=== PATIENT | female | born 1960 | race Caucasian/White ===

== ENCOUNTER → 2016-06-09 | Day surgery (SDC) | payer OTHER ==
[~2016-06-09] VITALS: Ht 160 cm; Wt 68.0 kg
[~2016-06-09] MED LIST: ACETAMI PO; BACTRIM DS 8001 TAB PO; BACTRIM DS TAB1 EACH PO; BENTYL 10 MG CA10 MG PO; BENZONATATE200 MG PO; CARAFATE 1GM1000 MG PO; CENTRUM SILVER1 TA1 PO; DILAUDID2 MG PO; GABAPENTIN300 MG PO; GABAPENTIN400 MG PO; HYDROCODONE PO; KEFLEX500 M1 PO; KLONOPIN 1MG TAB1 MG PO; LYRICA25 M1 AD; MEDROL DOSEPAK1 PAC PO; MEDROL4 M2 PO; METFORMIN HCL500 M3; METHOCARBAMOL750 MG PO; METHYLPREDNISONE4 MG PO; NEURONTIN300 MG PO; NOVAPLUS V0.09 MG/Ac INH; ONDANSETRON8 M1 PO; OXYCODONE HYDRO15 MG PO; PANTOPRAZOLE SO40 MG PO; PEPCID40 MG PO; PERCOCET 325 MG1 TA1 PO; PERCOCET 325 MG1 TA2 PO; PERCOCET 5-3251 EACH PO; PHENADOZ25 MG PR; PHENERGAN12.5 M1 PO; PHENERGAN25 M1 PO; PHENERGAN25 MG PR; PHENERGAN25 MG RC; PHENERGAN25 MG/ML PO; PROMETHAZINE25 M1 PO; PROMETHAZINE25 MG PR; ROBAXIN 500MG500 MG PO; ROBAXIN500 M1 PO; ROXICODONE5 MG PO; SEPTS PO; SKELAXIN800 M1 PO; SUPREP BOWEL P177 ML PO; TRAMADOL HCL50 M1 PO; TRAMADOL HYDROC50 MG PO; TRAMADOL50 MG PO; TYLENOL PM 5001 CAP PO; TYLENOL WITH C1 EACH PO; ULTRAM(MONOGRAP50 MG PO; VITAMIN B121000 MC2 PO; ZITHROMAX Z-PA250 M1 PO; ZOFRAN 4 MG TABL4 MG PO; ZOFRAN ODT4 MG PO; ZOFRAN ODT4 MG SL; ZOFRAN4 M1 PO; ZOFRAN4 M1 SL
--- NOTE | 2016-06-09 13:43 | Operative Report ---
Operative/Inv Procedure Report Surgery Date: 06/09/16 Name of Procedure: Excision abdominal wall wound skin and subcutaneous tissues tissues and fascia. Removal of prosthetic material foreign body Pre-Operative Diagnosis: Chronic abdominal wound with foreign body Post-Operative Diagnosis: Same Estimated Blood Loss: scant Surgeon/Drying Can Worker: KEARA JHA MD Anesthesia: laryngeal mask airway Operative Indication: 55-year-old woman with chronic purulent drainage from his jejunostomy site. CT scan does not show evidence of a fistula. There is concern about retained prosthetic foreign material related to the feeding tube. She presents for resection Operative/Procedure Note Note: After consent she is brought to the operating room laid supine. Gen. anesthesia was obtained and her abdomen was prepped and draped. The wound was in the left lower quadrant an ellipse of skin was taken around the opening to encompass all of the inflamed skin and subcutaneous tissue. A core of tissue was then taken down to the fascia along the tract of the previously placed feeding tube. There was a fixed, firm band of tissue extending down to the fascia and it was excised completely with cautery to incorporate a small amount of fascia to which it was adhered. The specimen was then passed off the field. The fascial defect was only through the external oblique aponeurosis. Therefore it was not repaired. I elected not to perform closure of the deep tissues due to the contaminated nature of the case and concern about Vicryl foreign body reaction with infection. Wound was then irrigated with saline. The incision was then closed with interrupted 3-0 nylon in a vertical mattress fashion. Bacitracin was applied. Sterile dressing was applied. Sponge and needle counts are correct CC: GISELL RESENDIZ APRN
== END ==
LOC: STS 04:20
DX: M79.5 Residual foreign body in soft tissue (principal); Z18.9 Retained foreign body fragments, unspecified material; L08.9 Local infection of the skin and subcutaneous tissue, unspecified; Z93.4 Other artificial openings of gastrointestinal tract status; K57.92 Diverticulitis of intestine, part unspecified, without perforation or abscess without bleeding; E11.9 Type 2 diabetes mellitus without complications; Z79.84 Long term (current) use of oral hypoglycemic drugs; G89.29 Other chronic pain; Z98.84 Bariatric surgery status
CPT/HCPCS: 88305; J0131; J0690; J2250

== ENCOUNTER 2016-08-25 18:10 | Emergency (ER) | payer OTHER ==
[~2016-08-25] VITALS: Ht 160 cm; Wt 63.5 kg
[~2016-08-25 18:10] MED LIST changes: -TYLENOL WITH C1 EACH PO
[2016-08-25 18:18] VITALS: BP 120/80
--- NOTE | 2016-08-25 19:36 | ED MVC/FALL/TRAUMA COMPLAINT ---
History of Present Illness General Chief Complaint: Low Back Pain/Injury Stated Complaint: LOW BACK INJ, Source: patient, old records Exam Limitations: no limitations Vital Signs & Intake/Output Vital Signs & Intake/Output Vital Signs Date Time Temp Pulse Resp B/P B/P Pulse O2 O2 Flow FiO2 Mean Ox Delivery Rate 08/25 1818 97.6 91 16 120/80 98 Room Air ED Intake and Output 08/26 0000 08/25 1200 Intake Total Output Total Balance Patient 140 lb Weight Weight Reported by Patient Measurement Method Allergies Coded Allergies: NSAIDS (Non-Steroidal Anti-Inflamma (Mild, HIVES 05/28/15) aspirin (Mild, HIVES 05/28/15) carisoprodol (Mild, muscles like jelly 09/23/15) ciprofloxacin (Mild, HIVES 05/28/15) ibuprofen (Mild, HIVES 05/28/15) iron (Mild, NAUSEA/VOMITING 05/28/15) Uncoded Allergies: MUSCLE RELAXANT (Intermediate, muscles like jelly 09/23/15) Reconcile Medications Cyanocobalamin (Vitamin B12) 1,000 MCG TAB 1 TAB PO DAILY SUPPLEMENT ( Reported) Metformin HCl 500 MG TABLET dm ii (Reported) Methocarbamol 750 MG TABLET 1 TAB PO TID MUSCLE RELAXER (Reported) Multivitamin, Minerals, and (Centrum Silver) 1 TAB TAB 1 TAB PO DAILY SUPPLEMENT (Reported) Pregabalin (Lyrica) 25 MG CAPSULE pain (Reported) Tramadol HCl 50 MG TABLET 1 TAB PO BIDP PRN pain Tylenol With Codeine (Tylenol With Codeine #3 Tablet) 300 MG-30 MG TABLET 1 TAB PO BIDP PRN pain Triage Note: PT STATES SHE FELL DOWN 6 STAIRS DOWN ON HER TAILBONE ABOUT 11AM. PT STATES SHE HAS BEEN TRYING TO HOLD OFF COMING. PT HAS TAKEN TYLENOL PM FOR THE PAIN WITH NO RELIEF. Triage Nurses Notes Reviewed? yes Onset: Abrupt Duration: hour(s): (3), constant Timing: recent history Severity: mild, moderate Severity Numbers: 5 Injuries/Fall Location: back Method of Injury: fall Loss of Consciousness: no loss of consciousness No Modifying Factors: none Associated Symptoms: denies HPI: 56-year-old male presents complaining of left sided lower back pain after she had a mechanical trip and fall and fell down 6 stairs hitting her back on a step. She nodded her head there is no loss of consciousness. Patient has been ambulatory since the fall or reports pain with change in position better at rest she took Aleve without improvement. No abdominal pain leg arm neck or head pain. No nausea vomiting. No prodromal dizziness or lightheadedness prior to the fall or chest pain no nausea or vomiting (YANIV ONEAL) Past History Travel History Traveled to [place] past 21 day No Medical History Any Pertinent Medical History? 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 No (YANIV ONEAL) Review of Systems Review of Systems Constitutional: Reports: see HPI. All Other Systems: Reviewed and Negative Comments Review of systems: See HPI, All other systems negative. Constitutional, no chills no fever, HEENT: No visual changes no sore throat no congestion, Cardiovascular: No chest pain , no palpitation Skin: no rashes, no change in skin Respiratory: No dyspnea no cough no sputum GI: No nausea no vomiting, no diarrhea, : No dysuria Muscle skeletal: No joint pain, no joint swelling, back pain, no neck pain, Neurologic: no headache Psych: No stress Heme/endocrine: No bruising no bleeding Immunology: No lymphadenopathy (YANIV ONEAL) Physical Exam Physical Exam General Appearance: well developed/nourished, alert, awake Comments: Well-developed well-nourished person in no acute distress HEENT: Normal EENT exam; PERRL, EOMI, no nystagmus. HEAD is atraumatic. moist mucous membranes. Neck: Supple, normal range of motion without pain or tenderness Back: Nontender, no ecchymosis or signs of trauma no CVA tenderness. Full range of motion Cardiovascular: Regular rate and rhythms no murmurs rubs Respiratory: Chest nontender.There were no bony deformities, no asymmetry. No respiratory distress. Patient speaking in full complete sentences. Breath sounds clear to auscultation bilaterally: NO W/R/R Abdomen: Soft, nontender nondistended, no appreciable organomegaly. Normal bowel sounds. No rebound/guarding, Extremity: No edema, full range of motion of extremities, normal and equal pulses bilaterally, 5 out of 5 strength noted to bilateral upper and lower extremities Neuro: Alert oriented x3, motor sensory normal. There were no obvious focal neurologic abnormalities. Skin: No appreciable rash on exposed skin, skin is warm and dry. Psych: Mood and affect is normal, memory and judgment is normal. Core Measures ACS in differential dx? No Severe Sepsis Present: No Septic Shock Present: No (YANIV ONEAL) Progress Differential Diagnosis: abd injury, C/T/L spine injury, ext injury, pelvis injury, spinal cord injury Plan of Care: Orders Procedure Date/time Status XRY-LUMBOSACRAL SPINE 4 VIEWS 08/25 1928 Active X-rays ordered from triage I discussed with the patient at length all of their results. I had an extensive conversation regarding need for close follow up with their primary care physician this week as well as return precautions. I answered all of their questions, they feel comfortable with the plan and follow-up care. I discussed with the patient/family the medications that they will receive. I gave them signs and symptoms that could indicate an adverse reaction. I have advised them to limit their activities until they can see how they respond to the medication. Patient was ambulatory with steady gait upon discharge (YANIV ONEAL) Diagnostic Imaging: Viewed by Me: Radiology Read. Discussed w/RAD: Radiology Read. Radiology Impression: PATIENT: EVELINE DAVILA PRESENT AGE: 56 PATIENT ACCOUNT NO: [id number] : 62 LOCATION: [facility] ORDERING PHYSICIAN: ESTELLA KASPER SERVICE DATE: 08/25/16 EXAM TYPE: RAD - XRY-LUMBOSACRAL SPINE 4 VIEWS EXAMINATION: XR LUMBOSACRAL SPINE CLINICAL INFORMATION: Pain after fall COMPARISON: lumbar spine MRI 05/28/2015 and lumbar spine radiographs 05/12/2014 TECHNIQUE: 4 views of the lumbar spine were obtained. FINDINGS: 5 nonrib-bearing lumbar vertebral bodies are visualized. Patient is status post posterior decompression fusion of L5 on S1. Hardware is unchanged in orientation. Alignment is within normal limits. Vertebral body heights and disc spaces are well-maintained. Sacroiliac joints are symmetric. Numerous surgical clips project over the upper abdomen. Suspected partial resection of the right 12th rib. IMPRESSION: Postsurgical changes of the lumbar spine without acute compression deformity. DICTATED BY: DENNISE MONROY MD DATE/TIME DICTATED:08/25/162008 MEDICAL REGISTRAR:AMBER DATE/TIME TRANSCRIBED:08/25/162008 CONFIDENTIAL, DO NOT COPY WITHOUT APPROPRIATE AUTHORIZATION. <Electronically signed in Other Vendor System> SIGNED BY: DENNISE MONROY MD 08/25/162014 (YANIV ONEAL) Departure Departure Time of Disposition: 2032 Disposition: HOME OR SELF CARE Condition: Stable Clinical Impression Primary Impression: Low back strain Secondary Impressions: Fall Referrals: GISELL RESENDIZ APRN (PCP/Family) Additional Instructions: tylenol with codeine for breakthrough pain. [facility] [place]. rest, ice, follow up with your pmd this week, return with any concerns Departure Forms: Customer Survey General Discharge Information Prescriptions: Current Visit Scripts Tylenol With Codeine (Tylenol With Codeine #3 Tablet) 1 TAB PO BIDP PRN pain #8 TAB (YANIV ONEAL) PA/STENCIL CUTTER Co-Sign Statement Statement: ED Attending supervision documentation- [] I saw and evaluated the patient. I have also reviewed all the pertinent lab results and diagnostic results. I agree with the findings and the plan of care as documented in the PA's/STENCIL CUTTER's documentation. [X] I have reviewed the ED Record and agree with the PA's/STENCIL CUTTER's documentation. [] Additions or exceptions (if any) to the PAs/STENCIL CUTTER's note and plan are summarized below: [] (IGNACIO YOST,DARLENE)
--- NOTE | 2016-08-25 20:15 | RADIOLOGY REPORT ---
EXAMINATION: XR LUMBOSACRAL SPINE CLINICAL INFORMATION: Pain after fall COMPARISON: lumbar spine MRI 05/28/2015 and lumbar spine radiographs 05/12/2014 TECHNIQUE: 4 views of the lumbar spine were obtained. FINDINGS: 5 nonrib-bearing lumbar vertebral bodies are visualized. Patient is status post posterior decompression fusion of L5 on S1. Hardware is unchanged in orientation. Alignment is within normal limits. Vertebral body heights and disc spaces are well-maintained. Sacroiliac joints are symmetric. Numerous surgical clips project over the upper abdomen. Suspected partial resection of the right 12th rib. IMPRESSION: Postsurgical changes of the lumbar spine without acute compression deformity.
[2016-08-25] MEDS ORDERED: TYLENOL WITH C1 EACH PO (20:34)
== END 2016-08-25 20:53 ==
LOC: ERH 18:10
DX: S39.012A Strain of muscle, fascia and tendon of lower back, initial encounter (principal); W10.9XXA Fall (on) (from) unspecified stairs and steps, initial encounter; Y93.9 Activity, unspecified; Y92.9 Unspecified place or not applicable
CPT/HCPCS: 72110

== ENCOUNTER 2017-11-28 23:42 | Emergency (ER) | payer OTHER ==
[~2017-11-28] VITALS: Ht 160 cm; Wt 72.6 kg
[~2017-11-28 23:42] MED LIST changes: +TYLENOL WITH C1 EACH PO
[2017-11-29 00:22] VITALS: BP 128/85
--- NOTE | 2017-11-29 01:36 | RADIOLOGY REPORT ---
EXAMINATION: LEFT KNEE 3 VIEWS CLINICAL INFORMATION: Left knee pain after fall. COMPARISON: None. TECHNIQUE: AP, lateral, oblique views of the left knee were obtained. FINDINGS: There are no fractures or dislocations. There is no knee joint effusion. There is no significant soft tissue swelling. IMPRESSION: Unremarkable left knee radiographs.
--- NOTE | 2017-11-29 01:36 | RADIOLOGY REPORT ---
EXAMINATION: SHOULDER 3 VIEWS, RIGHT CLINICAL INFORMATION: Right shoulder pain after fall. COMPARISON: None. TECHNIQUE: AP views of the right shoulder were obtained in internal and external rotation. In addition, a Y view was obtained. FINDINGS: There are no fractures or dislocations. The humeral head is seated within a well-formed glenoid. The AC joint is intact. IMPRESSION: Unremarkable right shoulder radiographs.
--- NOTE | 2017-11-29 01:49 | ED MVC/FALL/TRAUMA COMPLAINT ---
History of Present Illness General Chief Complaint: Upper Extremity Injury Stated Complaint: RIGHT ARM/SHOULDER PAIN S/P FALL Source: patient, old records Exam Limitations: no limitations Vital Signs & Intake/Output Vital Signs & Intake/Output Vital Signs Date Time Temp Pulse Resp B/P B/P Pulse O2 O2 Flow FiO2 Mean Ox Delivery Rate 11/29 0022 98.7 94 18 128/85 95 Room Air Allergies Coded Allergies: NSAIDS (Non-Steroidal Anti-Inflamma (Mild, HIVES 11/29/17) aspirin (Mild, HIVES 11/29/17) carisoprodol (Mild, muscles like jelly 11/29/17) ciprofloxacin (Mild, HIVES 11/29/17) ibuprofen (Mild, HIVES 11/29/17) iron (Mild, NAUSEA/VOMITING 11/29/17) Uncoded Allergies: MUSCLE RELAXANT (Intermediate, muscles like jelly 09/23/15) Reconcile Medications Cyanocobalamin (Vitamin B12) 1,000 MCG TAB 1 TAB PO DAILY SUPPLEMENT ( Reported) Metformin HCl 500 MG TABLET dm ii (Reported) Methocarbamol 750 MG TABLET 1 TAB PO TID MUSCLE RELAXER (Reported) Multivitamin, Minerals, and (Centrum Silver) 1 TAB TAB 1 TAB PO DAILY SUPPLEMENT (Reported) Pregabalin (Lyrica) 25 MG CAPSULE pain (Reported) Tramadol HCl 50 MG TABLET 1 TAB PO BIDP PRN pain Tylenol With Codeine (Tylenol With Codeine #3 Tablet) 300 MG-30 MG TABLET 1 TAB PO BIDP PRN pain Triage Note: TRIAGE: PATIENT TO ER FROM HOME S/P MECHANICAL FALL 2PM TODAY, LANDED ON L KNEE AND "BROKE FALL W/ R SHOULDER, NOW CAN'T MOVE R SHOULDER PAIN W/ ANY MVMT." PATIENT DENIES KNEE PAIN, SUPERFICIAL ABRASION NOTED TO L KNEE. PATIENT CURRENTLY ON PAIN MGMT AND IS ON DISABILITY. Triage Nurses Notes Reviewed? yes Onset: Afternoon Duration: hour(s):, constant, continues in ED Timing: recent history Severity: moderate, severe Injuries/Fall Location: upper extremity, lower extremity Method of Injury: direct blow, fall Loss of Consciousness: no loss of consciousness Modifying Factors: Worsens With: movement. LMP (ages 10-50): post menopausal : No Patient currently breastfeeds: No HPI: The afternoon prior to admission patient lost her balance fell onto her left knee and outstretched right arm. She complains of noted range of motion pain to the right shoulder. She denies other injury fever chills nausea vomiting diarrhea abdominal pain chest pain shortness breath headache dysuria rash. Past History Travel History Traveled to [place] past 21 day No Medical History Any Pertinent Medical History? 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 No Review of Systems Review of Systems Constitutional: Reports: no symptoms. Eyes: Reports: no symptoms. Ears, Nose, Throat, Mouth: Reports: no symptoms. Respiratory: Reports: no symptoms. Cardiovascular: Reports: no symptoms. Gastrointestinal/Abdominal: Reports: no symptoms. Genitourinary: Reports: no symptoms. Musculoskeletal: Reports: see HPI, joint pain. Skin: Reports: no symptoms. Neurological/Psychological: Reports: no symptoms. All Other Systems: Reviewed and Negative Physical Exam Physical Exam General Appearance: well developed/nourished, alert, awake, anxious, mild distress Head: atraumatic, normal appearance Eyes: Bilateral: normal appearance, PERRL, EOMI, normal inspection. Ears, Nose, Throat, Mouth: hearing grossly normal, moist mucous membrane Neck: normal inspection, supple, full range of motion, normal alignment Respiratory: normal breath sounds, chest non-tender, no respiratory distress, quiet respiration, lungs clear Cardiovascular: regular rate/rhythm, normal peripheral pulses, norml femoral pulses equa Peripheral Pulses: 4+ carotid (R), 4+ carotid (L) Gastrointestinal: normal bowel sounds, soft, non-tender, no organomegaly Back: normal inspection, normal range of motion Extremities: evidence of injury, limited range of motion, tenderness, no ligament instability Neurologic/Psych: no motor/sensory deficits, awake, alert, oriented x 3, normal gait, normal mood/affect, supervisor costuming II-XII nml as tested Skin: normal color, Abrasion left knee Core Measures ACS in differential dx? No CVA/TIA Diagnosis No Sepsis Present: No Sepsis Focused Exam Completed? No Progress Differential Diagnosis: ext injury Plan of Care: Orders Procedure Date/time Status Durable Medical Equipment 11/29 146 Active Diagnostic Imaging: Viewed by Me: Radiology Read. Discussed w/RAD: Radiology Read. Radiology Impression: no acute abnormality, no fracture, no dislocation, no foreign body seen Comments: Called by [facility], will not fill oxycodone. Patient updated and will follow up with PMD. Departure Departure Time of Disposition: 145 Disposition: HOME OR SELF CARE Condition: Stable Clinical Impression Primary Impression: Rotator cuff sprain Qualifiers: Encounter type: initial encounter Laterality: right Qualified Code: S43.421A - Sprain of right rotator cuff capsule, initial encounter Secondary Impressions: Contusion, knee Qualifiers: Encounter type: initial encounter Laterality: left Qualified Code: S80.02XA - Contusion of left knee, initial encounter Fall Referrals: Osman Rodriguez APRN (PCP/Family) Saroj YOST,Felice Call for orthopedic follow up Departure Forms: Customer Survey General Discharge Information
[2017-11-29] MEDS ORDERED: OXYCODONE HCL5 M1 PO (01:50)
== END 2017-11-29 01:56 ==
LOC: ERH 23:42
DX: S43.421A Sprain of right rotator cuff capsule, initial encounter (principal); S80.02XA Contusion of left knee, initial encounter; W19.XXXA Unspecified fall, initial encounter
CPT/HCPCS: 73030-RT; 73560-LT